=== PATIENT | male | born 1970 | race Caucasian/White ===

== ENCOUNTER 2024-01-25 23:07 | Inpatient (IN) | payer BC, SELFPAY ==
[2024-01-25 20:28] VITALS: BMI 31.0
[2024-01-25 20:35] VITALS: BP 184/111
[2024-01-25 20:54] LABS: % Basophils 0.8 % (0-2); % Eosinophils 6.3 % (0-6); % Immature Granulocytes 0.4 % (0-0.5); % Lymphocytes 39.5 % (20.5-51.1); % Monocytes 6.4 % (1.7-9.3); % Neutrophils 46.6 % (42.2-75.2); Absolute Basophils 0.1 10^3/uL (0-0.2); Absolute Eosinophils 0.5 10^3/uL (0-0.7); Absolute Lymphocytes 3.3 10^3/uL (1.2-3.4); Absolute Monocytes 0.5 10^3/uL (0.1-0.6); Absolute Neutrophils 3.9 10^3/uL (1.4-6.5); Hematocrit 41.8 % (39.0-52.0); Mean Corp Hgb Conc. 35.9 g/dL (33.0-37.0); Mean Corpuscular Hgb 31.3 pg (27.0-31.0); Mean Corpuscular Volume 87.1 fL (80.0-94.0); Mean Platelet Volume 9.1 fL (7.4-10.4); Nucleated Red Blood Cells % 0 % (-); Platelet Count 311 10^3/uL (130-400); Red Cell Dist. Width 11.6 % (11.5-14.5); White Blood Cell Count 8.4 10^3/uL (4.8-10.8)
[2024-01-25 21:14] LABS: ALT (SGPT) 29 U/L (0-50); AST (SGOT) 32 U/L (17-59); Albumin 4.6 g/dl (3.5-5.0); Alkaline Phosphatase 76 U/L (38-126); Blood Urea Nitrogen 22 mg/dl (9-20); Calcium 9.6 mg/dl (8.4-10.2); Carbon Dioxide 27 mmol/L (22-30); Chloride 97 mmol/L (98-107); Glucose 145 mg/dl (70-99); Sodium 134 mmol/L (135-145); Total Bilirubin 0.6 mg/dl (0.2-1.3); Total Protein 7.7 g/dl (6.3-8.2); eGFR > 60.00
[2024-01-25 22:12] LABS: Troponin I 0.118 ng/ml
--- NOTE | 2024-01-25 22:13 | ED.GENMED ---
History of Present Illness
<MARILEE Camarena - Last Filed: 01/26/24 05:13>
General
Chief Complaint: Chest Pain
Source: patient
Exam Limitations: none
Time Seen by Provider: 01/25/24 22:01
Travel History
Have you had any contact with someone who has COVID-19?: No
Do you have any symptoms of coronavirus? Fever > 100 degrees, chills, cough, shortness of breath, sore throat, loss of taste or smell, muscle aches, or headache?: No
History of Present Illness
History of Present Illness:
This is a 53 yo male pmh of HTN, GERD presenting for chest pain started 1pm today. One episode of chest pain for 20 minutes at 1pm which resolved, but then returned at 8pm and was worse on his way to the ER. States pain started at jaw consistent
with his dental abcess, but pain radiated down to his chest and both arms. States pain was sharp 8/10 in severity. He states he took 2 ibuprofen 30 mins before arriving to ER. He denies previous episodes of chest pain. In regards to dental abcess,
was treated with abx 3 months ago and is scheduled for a root canal next week. States pain is more severe than usual GERD pain. He denies fever, diaphoresis, SOB, dizziness, weakness, vision changes. Family history significant for OH in brother in
his 30s.
If applicable-neuro sx onset
Onset of symptoms known: Yes
Date of onset of symptoms: 01/25/24
Past History
<MARILEE Camarena - Last Filed: 01/26/24 05:13>
Past History
ED Past Medical History: HTN
ED Past Surgical History: Other (wisdom teeth removed)
Patient has exhibited threatening behavior?: No
Social History
Tobacco: Smoker
Alcohol: None
Drug: None
Personal:
Living: with family
Employment: Employed
Family History
Family History: CAD
Review of Systems
<MARILEE Camarena - Last Filed: 01/26/24 05:13>
Review of Systems
Allergies reviewed?: Yes
Phy Exam
<MARILEE Camarena - Last Filed: 01/26/24 05:13>
General Physical Exam
General Presentation: well appearing
General age: appears stated age
General Skin: warm
General Habitus: normal
General Mental: alert
General Hydration: appears well hydrated
Eye Exam
Eye Exam: PERRL
Cardiovascular Exam
Cardiovascular Exam: regular rate/rhythm and no murmur
Pulmonary Exam
Pulmonary Exam: lungs clear and chest non tender
Neurological Exam
Neurological Exam: alert and oriented x3
Skin Exam
Skin Exam: normal color
Scores
<MARILEE Camarena - Last Filed: 01/26/24 05:13>
Heart Score for Chest Pain Patients
STEMI patient?: No
History: Moderately Suspicious
ECG: Normal
Age: >45 - <65 years
Risk Factors: 1 or 2 Risk Factors
Troponin: >/= 3 x Normal Limit
Heart Score for Chest Pain Patients: 5
Heart Score Risk: 20.3% MACE over next 6 weeks
Course
<MARILEE Camarena - Last Filed: 01/26/24 05:13>
Orders/Labs/Results
Orders:
Orders
01/25/24 20:47
Complete Blood Count/With Diff Urgent
Comprehensive Metabolic Panel Urgent
01/25/24 21:40
Troponin I Urgent
01/25/24 22:12
Electrocardiogram (*1) Urgent
Reason for Study: Chest Pain
EKG- Treatment ONCE
01/25/24 22:22
Aspirin 325 mg PO NOW STA
Metoprolol [Lopressor] 25 mg PO NOW STA
01/25/24 22:[address] Non Medication Order As Directed
Physician Order: PTT 6 hours after initial start of Heparin infusion
Above order entered?: Yes
01/25/24 22:24
CR Chest - 2 Views Urgent
Comment:
Reason For Exam: cp
01/25/24 22:32
Heparin 4,000 units IV NOW STA
Nursing to Place Non Medication Order As Directed
Physician Order: PTT 6 hours after initial start of Heparin infusion
Above order entered?: Yes
01/25/24 22:44
PTT Urgent
Comment: Obtain baseline before beginning heparin infusion if not already collected
01/25/24 22:45
Heparin 95927 Units/250 ml 25,000 units in 250 ml IV PER PROTOCOL
Weight to be used for heparin protocol in kilograms (kg):: 98
Protocol:: Cardiac Tx/Acute Coronary
PTT Goal Range to be used:: PTT 73 to 111 seconds
Order type:: Initial
INITIAL Infusion Dose (UNITS/KG/hr) & then follow protocol:: 15 units/kg/hr
Infusion Dose in UNITS/hr & then follow protocol (UNITS/hr):: 1,450
INFUSION RATE in mL/hr & then follow protocol (mL/hr):: 14.5
PTT less than or equal to 64 seconds:: Increase rate by 200 units/hr (+ 2 mL/hr)
PTT 64.1 to 72.9 seconds:: Increase rate by 100 units/hr (+ 1 mL/hr)
PTT 73 to 111 seconds:: Target Range. No change in rate.
PTT 111.1 to 130.9 seconds:: Decrease rate by 100 units/hr (- 1 mL/hr)
PTT 131 to 199.9 seconds:: HOLD for 1 hr. Then decrease rate by 200 units/hr (- 2 mL/hr)
PTT greater than or equal to 200 seconds:: HOLD for 2 hrs & Notify Provider. Then decrease by 200 units/hr (-
2 mL/hr)
Lab follow-up:: Each change, PTT q6h until 2 consecutive are therapeutic. Then PTT
daily.
01/25/24 22:57
Admit/Transfer Patient As Directed
Co-Sign Provider:
Level of Care: Inpatient admission
Assign to:: Telemetry
Physician / Group: jonah
Diagnosis: nstemi
Reason for Telemetry: Chest Pain syndromes
Date to Stop Telemetry: 01/27/24
Time to Stop Telemetry: 11:00
Reason for Hospitalization: nstemi
Expected length of stay greater than two midnights?: Yes
ELOS- Estimated Length of Stay in days: 2
I certify the patient meets the requirements for IP care: Yes
01/25/24 22:58
Code Status As Directed
Resuscitation Status: Full Code
01/26/24 00:37
Echo 2D MMode Color/Doppler Routine
Reason for Study: nstemi
CARDIOLOGY CONSULT Routine
Consulting Provider: Ricardo Lopez
Was physician already notified: Yes
Heparin Protocol- PTT Orders As Directed
PTT per Heparin protocol: -Obtain CBC and baseline PTT - if not already collected.
-Obtain PTT 6 hours from start of infusion. Then, every 6 hours until 2 consecutive
PTT's are therapeutic. Then, PTT Daily.
-With each rate change, obtain PTT every 6 hours until 2 consecutive PTT's are
therapeutic. Then, PTT Daily.
Activity As Directed
Activity Level: As Tolerated
Notify MD As Directed
Notify physician if: PTT is greater than or equal to 200.
Pneumatic Compression Sleeves As Directed
Type: Knee high
Vital Signs As Directed
Frequency: Per unit guidelines
DX Deep Vein Thrombosis Video Routine
01/26/24 01:02
Troponin I Q6H
01/26/24 Breakfast
NPO
Allow oral meds: Yes
Allow clear liquids: Sips of Clears
Complete Blood Count/With Diff IN AM
Comprehensive Metabolic Panel IN AM
01/26/24 06:37
Troponin I Q6H
01/26/24 08:00
Amlodipine [Norvasc] 5 mg PO DAILY
Aspirin Low Dose EC [Aspir Low (Enteric Coated)] 81 mg PO DAILY
Lisinopril [Zestril] 20 mg PO DAILY
Metoprolol [Lopressor] 25 mg PO BID
Pantoprazole [Protonix] 40 mg PO BID
01/26/24 12:37
Troponin I Q6H
01/26/24 Dinner
Regular
01/27/24 06:00
Complete Blood Count/No Diff Q2D
Comment: notify provider: Platelet count < 130,000 or decrease by 50% from baseline
01/27/24 11:00
DC Protocol for Telemetry ONCE
01/29/24 06:00
Complete Blood Count/No Diff Q2D
Comment: notify provider: Platelet count < 130,000 or decrease by 50% from baseline
01/31/24 06:00
Complete Blood Count/No Diff Q2D
Comment: notify provider: Platelet count < 130,000 or decrease by 50% from baseline
02/02/24 06:00
Complete Blood Count/No Diff Q2D
Comment: notify provider: Platelet count < 130,000 or decrease by 50% from baseline
02/04/24 06:00
Complete Blood Count/No Diff Q2D
Comment: notify provider: Platelet count < 130,000 or decrease by 50% from baseline
02/06/24 06:00
Complete Blood Count/No Diff Q2D
Comment: notify provider: Platelet count < 130,000 or decrease by 50% from baseline
02/08/24 06:00
Complete Blood Count/No Diff Q2D
Comment: notify provider: Platelet count < 130,000 or decrease by 50% from baseline
02/10/24 06:00
Complete Blood Count/No Diff Q2D
Comment: notify provider: Platelet count < 130,000 or decrease by 50% from baseline
Abnormal Lab Results
01/25/24 01/25/24 01/25/24
20:47 21:40 22:44
MCH 31.3 H pg
(27.0-31.0)
Eosinophils % 6.3 H %
(0-6)
APTT 126.4 H Sec
(23.4-35.0)
Sodium 134 L mmol/L
(135-145)
Chloride 97 L mmol/L
(98-107)
BUN 22 H mg/dl
(9-20)
Glucose 145 H mg/dl
(70-99)
Troponin I 0.118 H* ng/ml
01/25/24 20:47
01/25/24 20:47
Vital Signs
Initial and Last Documented VS:
Initial Vital Signs
Temp Pulse Resp BP Pulse Ox
97.8 F 87 17 184/111 98
01/25/24 20:35 01/25/24 20:35 01/25/24 20:35 01/25/24 20:35 01/25/24 20:35
Last Documented Vital Signs
Temp Pulse Resp BP Pulse Ox
98.3 F 68 20 135/92 96
01/26/24 03:32 01/26/24 04:00 01/26/24 04:00 01/26/24 04:00 01/26/24 04:00
Natalylt;Rickey Marquez, DO - Last Filed: 01/25/24 22:44>
Orders/Labs/Results
Orders:
Orders
01/25/24 20:47
Complete Blood Count/With Diff Urgent
Comprehensive Metabolic Panel Urgent
01/25/24 21:40
Troponin I Urgent
01/25/24 22:12
Electrocardiogram (*1) Urgent
Reason for Study: Chest Pain
EKG- Treatment ONCE
01/25/24 22:22
Aspirin 325 mg PO NOW STA
Metoprolol [Lopressor] 25 mg PO NOW STA
01/25/24 22:[address] Non Medication Order As Directed
Physician Order: PTT 6 hours after initial start of Heparin infusion
Above order entered?: Yes
01/25/24 22:24
CR Chest - 2 Views Urgent
Comment:
Reason For Exam: cp
01/25/24 22:32
Heparin 4,000 units IV NOW STA
Nursing to Place Non Medication Order As Directed
Physician Order: PTT 6 hours after initial start of Heparin infusion
Above order entered?: Yes
01/25/24 22:44
PTT Urgent
Comment: Obtain baseline before beginning heparin infusion if not already collected
01/25/24 22:45
Heparin 56245 Units/250 ml 25,000 units in 250 ml IV PER PROTOCOL
Weight to be used for heparin protocol in kilograms (kg):: 98
Protocol:: Cardiac Tx/Acute Coronary
PTT Goal Range to be used:: PTT 73 to 111 seconds
Order type:: Initial
INITIAL Infusion Dose (UNITS/KG/hr) & then follow protocol:: 15 units/kg/hr
Infusion Dose in UNITS/hr & then follow protocol (UNITS/hr):: 1,450
INFUSION RATE in mL/hr & then follow protocol (mL/hr):: 14.5
PTT less than or equal to 64 seconds:: Increase rate by 200 units/hr (+ 2 mL/hr)
PTT 64.1 to 72.9 seconds:: Increase rate by 100 units/hr (+ 1 mL/hr)
PTT 73 to 111 seconds:: Target Range. No change in rate.
PTT 111.1 to 130.9 seconds:: Decrease rate by 100 units/hr (- 1 mL/hr)
PTT 131 to 199.9 seconds:: HOLD for 1 hr. Then decrease rate by 200 units/hr (- 2 mL/hr)
PTT greater than or equal to 200 seconds:: HOLD for 2 hrs & Notify Provider. Then decrease by 200 units/hr (-
2 mL/hr)
Lab follow-up:: Each change, PTT q6h until 2 consecutive are therapeutic. Then PTT
daily.
01/25/24 22:57
Admit/Transfer Patient As Directed
Co-Sign Provider:
Level of Care: Inpatient admission
Assign to:: Telemetry
Physician / Group: jonah
Diagnosis: nstemi
Reason for Telemetry: Chest Pain syndromes
Date to Stop Telemetry: 01/27/24
Time to Stop Telemetry: 11:00
Reason for Hospitalization: nstemi
Expected length of stay greater than two midnights?: Yes
ELOS- Estimated Length of Stay in days: 2
I certify the patient meets the requirements for IP care: Yes
01/25/24 22:58
Code Status As Directed
Resuscitation Status: Full Code
01/26/24 00:37
Echo 2D MMode Color/Doppler Routine
Reason for Study: nstemi
CARDIOLOGY CONSULT Routine
Consulting Provider: Ricardo Lopez
Was physician already notified: Yes
Heparin Protocol- PTT Orders As Directed
PTT per Heparin protocol: -Obtain CBC and baseline PTT - if not already collected.
-Obtain PTT 6 hours from start of infusion. Then, every 6 hours until 2 consecutive
PTT's are therapeutic. Then, PTT Daily.
-With each rate change, obtain PTT every 6 hours until 2 consecutive PTT's are
therapeutic. Then, PTT Daily.
Activity As Directed
Activity Level: As Tolerated
Notify MD As Directed
Notify physician if: PTT is greater than or equal to 200.
Pneumatic Compression Sleeves As Directed
Type: Knee high
Vital Signs As Directed
Frequency: Per unit guidelines
DX Deep Vein Thrombosis Video Routine
01/26/24 01:02
Troponin I Q6H
01/26/24 Breakfast
NPO
Allow oral meds: Yes
Allow clear liquids: Sips of Clears
Complete Blood Count/With Diff IN AM
Comprehensive Metabolic Panel IN AM
01/26/24 06:37
Troponin I Q6H
01/26/24 08:00
Amlodipine [Norvasc] 5 mg PO DAILY
Aspirin Low Dose EC [Aspir Low (Enteric Coated)] 81 mg PO DAILY
Lisinopril [Zestril] 20 mg PO DAILY
Metoprolol [Lopressor] 25 mg PO BID
Pantoprazole [Protonix] 40 mg PO BID
01/26/24 12:37
Troponin I Q6H
01/26/24 Dinner
Regular
01/27/24 06:00
Complete Blood Count/No Diff Q2D
Comment: notify provider: Platelet count < 130,000 or decrease by 50% from baseline
01/27/24 11:00
DC Protocol for Telemetry ONCE
01/29/24 06:00
Complete Blood Count/No Diff Q2D
Comment: notify provider: Platelet count < 130,000 or decrease by 50% from baseline
01/31/24 06:00
Complete Blood Count/No Diff Q2D
Comment: notify provider: Platelet count < 130,000 or decrease by 50% from baseline
02/02/24 06:00
Complete Blood Count/No Diff Q2D
Comment: notify provider: Platelet count < 130,000 or decrease by 50% from baseline
02/04/24 06:00
Complete Blood Count/No Diff Q2D
Comment: notify provider: Platelet count < 130,000 or decrease by 50% from baseline
02/06/24 06:00
Complete Blood Count/No Diff Q2D
Comment: notify provider: Platelet count < 130,000 or decrease by 50% from baseline
02/08/24 06:00
Complete Blood Count/No Diff Q2D
Comment: notify provider: Platelet count < 130,000 or decrease by 50% from baseline
02/10/24 06:00
Complete Blood Count/No Diff Q2D
Comment: notify provider: Platelet count < 130,000 or decrease by 50% from baseline
Abnormal Lab Results
01/25/24 01/25/24 01/25/24
20:47 21:40 22:44
MCH 31.3 H pg
(27.0-31.0)
Eosinophils % 6.3 H %
(0-6)
APTT 126.4 H Sec
(23.4-35.0)
Sodium 134 L mmol/L
(135-145)
Chloride 97 L mmol/L
(98-107)
BUN 22 H mg/dl
(9-20)
Glucose 145 H mg/dl
(70-99)
Troponin I 0.118 H* ng/ml
01/25/24 20:47
01/25/24 20:47
Vital Signs
Initial and Last Documented VS:
Initial Vital Signs
Temp Pulse Resp BP Pulse Ox
97.8 F 87 17 184/111 98
01/25/24 20:35 01/25/24 20:35 01/25/24 20:35 01/25/24 20:35 01/25/24 20:35
Last Documented Vital Signs
Temp Pulse Resp BP Pulse Ox
98.3 F 68 20 135/92 96
01/26/24 03:32 01/26/24 04:00 01/26/24 04:00 01/26/24 04:00 01/26/24 04:00
<MARILEE Camarena - Last Filed: 01/26/24 05:13>
MDM/Problems Addressed
Differential Diagnosis Includes:
Unstable angina, NSTEMI, costochondritis, GERD
MDM/Problems Addressed:
Unstable angina
- 2 episodes of Chest pain at rest, resolved after arrival to ER
NSTEMI
-chest pain radiating down BL arms
-No ST elevations on EKG
-troponin .118
Costochondritis
-no chest wall tenderness
GERD
-takes omeprazole daily
-states pain is distinct and more severe than typical GERD
<MARILEE Camarena - Last Filed: 01/26/24 05:13>
*Critical Care Note
Total Time (30-74mins, 75-104mins- exclusive of procedures): Not Applicable
<Rickey Marquez DO - Last Filed: 01/25/24 22:44>
*Critical Care Note
Total Time (30-74mins, 75-104mins- exclusive of procedures): Not Applicable
ED Attending Note
<MARILEE Camarena - Last Filed: 01/26/24 05:13>
-
Portions of this chart may have been created with voice recognition software.� Occasional wrong word or��sound alike� substitutions may have occurred due to the inherent limitations of voice recognition software.
<Rickey Marquez DO - Last Filed: 01/25/24 22:44>
ED Attending Note
Patient seen and examined by attending physician: Yes
I performed the substantive portion of visit, reviewed & personally made and approve the management plan that is documented in note by myself or CHARU.: Yes
ED Attending Note:
This a pleasant 53-year-old male that presents with chest pain. His chest pain initially began with jaw pain that radiated to his chest. Patient had a root canal on Yas[place]. Today that tooth caused him some pain. The pain radiated to his chest
and down his left arm. The pain was intermittent throughout the day beginning at 1 PM, but late this afternoon the pain came back. Patient took 600 mg of ibuprofen and came to the emergency department. Upon arrival, the pain resolved. Patient is
currently asymptomatic. Patient does have a history of hypertension. He denies any cardiac history though he has seen a air and water tester years ago at an outside hospital. He states that his brother had an OH in his 30s. Patient does smoke 2 to 3
cigars a week and drinks 2-3 alcoholic beverages per week at night. 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 Patient was seen in conjunction with the PA student. I have reviewed and agree with the history
and treatment plan presented. On my independent physical exam, patient is awake, alert, and oriented x3, no acute distress. Heart is regular rate rhythm. Lungs are clear to auscultation bilaterally with no wheezes rales or rhonchi. Skin is warm
and dry.
Vital signs are stable. Patient not hypoxic
Nursing note reviewed. I agree with nursing documentation up to this point in time.
Home Meds and allergies reviewed.
NUMBER AND COMPLEXITY OF PROBLEMS ADDRESSED AT THE ENCOUNTER
� Chronic conditions affecting care: Hypertension
� Acute Exacerbation and/or Progression of Chronic Illness: Acute problem
� Differential Diagnosis includes: ACS, musculoskeletal chest pain, referred pain from the jaw
AMOUNT AND/OR COMPLEXITY OF DATA TO BE REVIEWED AND ANALYZED
I performed an independent evaluation of the following and my interpretation is:
EKG: EKG shows normal sinus rhythm rate of 78 with normal intervals, normal axis. No evidence of acute ischemia. When compared with previous EKG, there is no obvious interval change noted.
CT:
X-rays:
Ultrasound:
Laboratory Studies: Troponin 0.118
Other:
Review of other/old records:
Clinical information was obtained by an independent historian:
Prescriptions/Medications Considered but not given:
Further testing considered but not performed:
RISK OF COMPLICATIONS AND/OR MORBIDITY OR MORTALITY OF PATIENT MANAGEMENT
Social determinants of health affecting care: Good Social Support
Discussion with other providers: Spoke with Dr. CAPRI Lopez, cardiology who agreed with plan to bring patient into the hospital service, give aspirin, heparin, metoprolol serial troponins.
Escalation of care including admission/observation vs risk of discharge considered: Admission to the hospital service
CRITICAL CARE NOTE: Not applicable
Total Time (exclusive of procedures):
Update:
Discharge Plan
Departure
Patient Disposition: Admit
Date of Disposition: 01/25/24
Time of Disposition: 22:43
Admit to: Telemetry
Presentation/result/management discussed w/ accepting MD/DO: Hospitalist
Discharge Problem:
Chest pain, ACS (acute coronary syndrome)
Interventions
Interventions:
*Risk Screen - Suicide Last Done: 01/26/24 03:52
*General Assessment Last Done: 01/25/24 20:35
*Neglect/Abuse Screening Last Done: 01/25/24 20:35
ED- Fall Risk Assessment Last Done: 01/25/24 22:45
*ED COVID-19 Vaccine History Last Done: 01/26/24 03:52
*Nursing Disposition Last Done: 01/26/24 03:05
ED- Cardiac Assessment Last Done: 01/25/24 22:45
Discharge Date and Time
Discharge Date/Time: 01/26/24 03:31
[2024-01-25] MEDS: ASPIRIN 325 MG PO (22:37)
[2024-01-25] MEDS: LOPRESSOR 25 MG PO (22:37)
[2024-01-25] MEDS: HEPARIN 4000 UNITS IV (22:38)
[2024-01-25 23:00] VITALS: BP 160/95
[2024-01-25 23:03] LABS: APTT 126.4 Sec (23.4-35.0)
--- NOTE | 2024-01-25 23:03 | HPS.HSE ---
Family Physician
-
Family Physician: James White
Chief Complaint
-
chest pain
History of Present Illness
53-year-old male past medical history of hypertension, GERD presenting for chest pain at 1 PM today. He had 1 episode of chest pain for 20 minutes which resolved and then returned at 8 PM and was worse. Pain started in the jaw and radiate down to
his chest and both arms. Pain was achy and 8 out of 10. He took 2 ibuprofen before coming to the emergency room. He denies ever having chest pain like this before. He denies any chest pain at the current time.
Patient has been having right lower jaw aching over the past few months. He saw dentist last week and was thought to have a dental abscess and is scheduled for root canal next week. He denies any fevers or chills or discharge from the mouth.
He denies any fever, sweating, shortness of breath, dizziness, nausea, weakness or vision changes.
Patient's brother had a heart attack in his 30s.
He does drink 3-4 drinks of alcohol per day. He smokes cigars occasionally. He does not use any other drugs.
Medical History
Past Medical History
Past Medical History: Reports Other (hypertension, GERD)
Past Surgical History: Reports None
Social History
Tobacco: Non-smoker
Alcohol: Daily
Drug: None
Family History
Family History: Not pertinent
Allergies / Home Medications
Allergies reflects when Allergies were last updated in [facility].
Home Medications with original date entered in [facility]
Allergy/Medication List:
Allergies
Allergy/AdvReac Type Severity Reaction Status Date / Time
No Known Allergies Allergy Verified 09/03/21 12:10
Home Medications
amlodipine 5 mg tablet 5 mg PO DAILY 07/10/15
omeprazole 20 mg capsule,delayed release 20 mg PO BID 01/25/24
ramipril 10 mg capsule 10 mg PO DAILY 01/25/24
Review of Systems
-
History Source: Patient
A 12 point ROS was completed and negative except as noted: Yes
Constitutional: Reports No Symptoms
EENT: Reports No Symptoms
Respiratory: Reports No Symptoms
Cardiac: Reports See HPI
Abdomen/GI: Reports No Symptoms
: Reports No Symptoms
Musculoskeletal: Reports No Symptoms
Skin: Reports No Symptoms
Neurological: Reports No Symptoms
Endocrine: Reports No Symptoms
Hematologic/Lymphatic: Reports No Symptoms
Psych: Reports No Symptoms
Physical Exam
Vital Signs
Vital Signs
Temp Pulse Resp BP Pulse Ox
97.8 F 82 17 152/97 98
01/25/24 20:35 01/25/24 22:37 01/25/24 20:35 01/25/24 22:37 01/25/24 20:35
Physical Exam
General: Well Developed, Well Nourished and No Apparent Distress
HEENT: NormoCephalic, Moist mucous membranes and Atraumatic
Respiratory: Clear
Cardiac: S1/S2 and Regular Rhythm; No Murmur or Rub
GI: Soft, Non Tender, Non Distended and Normal Bowel Sounds; No Organomegaly
Rectal: Deferred by Provider
Musculoskeletal: No Clubbing, No Cyanosis and No Edema
Skin: No Rash
Neuro: Nonfocal/grossly intact
Laboratory Results
-
01/25/24 20:47
01/25/24 20:47
Laboratory Results
Total Bilirubin 0.6 mg/dl (0.2-1.3) 01/25/24 20:47
AST 32 U/L (17-59) 01/25/24 20:47
ALT 29 U/L (0-50) 01/25/24 20:47
Alkaline Phosphatase 76 U/L (38-126) 01/25/24 20:47
Troponin I 0.118 ng/ml H* 01/25/24 21:40
Data Reviewed
-
Lab Data: Labs Reviewed by me
Old Records: Reviewed
Impression/Plan
-
IMPRESSION:
PLAN:
# NSTEMI
-EKG shows normal sinus rhythm
-Chest x-ray pending
-Troponin of 0.118
-Trend troponins
-Aspirin 325 mg given, continue
-Heparin drip
-Metoprolol given, continue BID
-N.p.o. past midnight
-Check echo
-Cardiology consulted
Possible dental abscess
-Scheduled for root canal next week
Essential hypertension
-Continue ramipril, amlodipine
GERD
-Continue omeprazole
Daily alcohol use
Full code
DVT prophylaxis�heparin drip
N.p.o. past midnight
[2024-01-26] VITALS (21 sets, daily range): BP systolic 108–155; BP diastolic 78–96; BMI 30.5
[2024-01-26] MEDS: HEPARIN 25000 UNITS/250 ML IV (00:09)
[2024-01-26 01:45] LABS: Troponin I 0.144 ng/ml
--- NOTE | 2024-01-26 03:39 | PTCARENOTE ---
Received pt from ED via [facility]. Able to ambulate to bed with minimal assistance. Pt has no complaints of pain at this time. Heparin gtt running currently at 1450 units/hr in right AC. VSS at this time. Pt NSR on monitor. NPO at this time.
Resting in bed with call gallegos in reach.
[2024-01-26 06:48] LABS: % Basophils 0.9 % (0-2); % Eosinophils 5.8 % (0-6); % Immature Granulocytes 0.3 % (0-0.5); % Lymphocytes 34.6 % (20.5-51.1); % Monocytes 7.2 % (1.7-9.3); % Neutrophils 51.2 % (42.2-75.2); APTT 60.3 Sec (23.4-35.0); Absolute Basophils 0.1 10^3/uL (0-0.2); Absolute Eosinophils 0.5 10^3/uL (0-0.7); Absolute Lymphocytes 2.7 10^3/uL (1.2-3.4); Absolute Monocytes 0.6 10^3/uL (0.1-0.6); Absolute Neutrophils 4.1 10^3/uL (1.4-6.5); Hematocrit 38.5 % (39.0-52.0); Hemoglobin 14.1 g/dL (13.0-18.0); Mean Corp Hgb Conc. 36.6 g/dL (33.0-37.0); Mean Corpuscular Hgb 31.1 pg (27.0-31.0); Mean Platelet Volume 9.4 fL (7.4-10.4); Nucleated Red Blood Cells % 0 % (-); Platelet Count 275 10^3/uL (130-400); Red Blood Cell Count 4.53 10^6/uL (4.70-6.10); Red Cell Dist. Width 11.6 % (11.5-14.5); White Blood Cell Count 7.9 10^3/uL (4.8-10.8)
[2024-01-26 06:54] LABS: ALT (SGPT) 23 U/L (0-50); AST (SGOT) 29 U/L (17-59); Alkaline Phosphatase 66 U/L (38-126); Blood Urea Nitrogen 19 mg/dl (9-20); Calcium 9.4 mg/dl (8.4-10.2); Carbon Dioxide 22 mmol/L (22-30); Chloride 104 mmol/L (98-107); Estimated Creatinine Clearance > 125 ml/min; Glucose 112 mg/dl (70-99); Potassium 4.1 mmol/L (3.5-5.1); Sodium 136 mmol/L (135-145); Total Bilirubin 0.9 mg/dl (0.2-1.3); Total Protein 6.9 g/dl (6.3-8.2); eGFR > 60.00
[2024-01-26 07:12] LABS: Troponin I 0.167 ng/ml
--- NOTE | 2024-01-26 08:42 | CON.CAR ---
Addendum entered and electronically signed by Wei Rios MD 01/26/24 09:25:
I saw and examined the patient.
The INFECTION PREVENTION PRACTITIONER's note was reviewed and I agree with the note.
53 year old male with history of GERD, prior history of root canal and tx of abcess 6months ago with addtional plans for extraction who presents with CP. Patietn with 2 episodesof exetional CP and jaw pain. yesterday. second episode loccurreed
walking up one flight of stairs and lated longer. ECG without ischemic changes. Troponin now 0.167. Presentation consistent with ACS/NSTMI. Pain free
- IV heparin
- ASA
- echo
- plan for cath.
Original Note:
Consultation
Consultation Request
Date/Time Consultation Requested: 01/26/24 1a
Date/Time Consultation Performed: 01/26/24 8:30a
Requesting Provider: Dr. Radford
Performing Provider: HUMZA Hall for Dr. Rios
Reason for Consultation: chest pain
Medical History
-
Chief Complaint: chest pain
History of Present Illness:
Mr. Borrego is a 53 yo male with HTN, GERD and seasonal allergies, who presents to the ER with c/o chest pain with exertion 01/25/24. He was walking uphill in [place] to his car and felt sudden chest tightness that lasted for 15 mins and resolved after he
rested in his car. Then last night he was walking up his stairs at home and again had chest pain that also radiated to his b/l arms and jaw. Pain lasted for hours, he tried Tums and Tylenol w/o relief so he came to the ER. EKG in the ER showed
NSR, no ischemia. Initial troponin 0.118 then 0.144, 0.167. He was given ASA, IV Heparin and is currently pain free. He had a tooth abscess 6 months ago treated with antibiotics and root canal. Last week at a routine dental cleaning, dentist
noted mild pain in tooth and abscess is still there and he recommends tooth extraction and bone graft scheduled for next week. Currently he c/o tooth pain and denies any cardiac symptoms.
Past Medical History
Past Medical History: GERD and HTN
Past Surgical History: None
Social History
Tobacco: Other (occasional cigar smoker)
Alcohol: Daily (2 drinks a night)
Drug: None
Personal:
Living: With Family
Employment: Employed
Family History
Family History: Early CAD (brother had UT age 30)
Allergies / Home Medications
Allergy/AdvReac Type Severity Reaction Status Date / Time
No Known Allergies Allergy Verified 09/03/21 12:10
�Medication �Instructions �Recorded �Confirmed �Type
amlodipine 5 mg tablet 5 mg PO DAILY Blood Pressure 07/10/15 01/25/24 History
omeprazole 20 mg capsule,delayed 20 mg PO BID GERD 01/25/24 01/25/24 History
release
ramipril 10 mg capsule 10 mg PO DAILY Blood Pressure 01/25/24 01/25/24 History
Review of Systems
-
History Source: Patient
All other systems: Negative unless noted
Physical Exam
Vital Signs
Temp Pulse Resp BP Pulse Ox
98.3 F 69 20 135/92 95
01/26/24 03:32 01/26/24 06:00 01/26/24 06:00 01/26/24 04:00 01/26/24 06:00
Lab Results
01/26/24 06:25
01/26/24 06:25
Troponin I 0.167 ng/ml H* 01/26/24 06:25
Physical Exam
General: Well Developed, Well Nourished and No Apparent Distress
HEENT: Normocephalic, Anicteric and Moist Mucous Membranes
Respiratory: Clear and Non Labored Respirations
Cardiac: S1/S2 and Regular Rhythm
Breast: Deferred by me
GI: Soft, Non Tender, Non Distended and Normal Bowel Sounds
Rectal: Deferred by Provider
Genito-urinary: No Costovertebral Tender
Musculoskeletal: No Clubbing, No Cyanosis and No Edema
Skin: Warm and Dry
Neuro: AO x 3
Psych: Calm
Impression / Plan
-
NSTEMI - acute chest pain with exertion yesterday.
- troponin 0.118, 0.144, 0.167, trend to peak.
- EKG w/o ischemia.
- currently pain free.
- ASA, IV Heparin, Lopressor.
- plan for [facility] today.
- check echo.
- NPO.
- check lipids. (lipid profile 06/2022: TC 171, TG 92, HDL 46, LDL 108) not currently on meds.
HTN - elevated on arrival.
- continue outpatient Lisinopril, Amlodipine.
- monitor on Lopressor.
GERD - stable on PPI, continue.
Data Reviewed
-
EKG: Tracing Personally Visualized and interpreted (NSR 78 bpm)
Labs: Labs Reviewed by me
Old Records: Reviewed (cariology office notes)
[2024-01-26] MEDS: ZESTRIL 20 MG PO (08:47)
[2024-01-26] MEDS: ASPIR LOW (ENTERIC COATED) 81 MG PO (08:47)
[2024-01-26] MEDS: PROTONIX 40 MG PO ×2 (08:47→20:04)
[2024-01-26] MEDS: LOPRESSOR 25 MG PO ×2 (08:47→20:06)
[2024-01-26] MEDS: NORVASC 5 MG PO (08:47)
--- NOTE | 2024-01-26 09:54 | W.PN.HOSP.TC ---
Today's Communication/Plan
-
for [facility] today
check lipid profile and a1c
maintain on heparin drip
Assessment / Plan
Assessment / Plan
Non-STEMI
-EKG shows normal sinus rhythm
-Troponin of 0.118 > 0.144 > 0.167
-Aspirin 325 mg given, continue on asa 81mg/d
-maintain on heparin drip.
-Cardiology following and help appreciated
-Planned for [facility] today
Possible dental abscess
-Scheduled for root canal/bone graft next week
Essential hypertension
-Continue ramipril, amlodipine
GERD
-Continue omeprazole
Daily alcohol use
-drinks 2-3 drinks/daily
-educated on alcohol cessation
Tobacco use
-smokes cigars occasionally
-counselled on cessation
-provide nicotine patch
Full code
DVT prophylaxis�heparin drip
Discussed with cardio
Anticipated Discharge: Within 24 hours
Subjective/Interval History
-
Date of Service: January 26, 2024
No further episode of chest pain/nausea/shortness of breath overnight
No other acute issues
Objective Data
-
Labs:
Laboratory Results
01/25/24 01/26/24 01/26/24
22:44 06:25 13:00
WBC 7.9
Hgb 14.1
Hct 38.5 L
Plt Count 275
APTT 126.4 H 60.3 H Pending
Sodium 136
Potassium 4.1
Chloride 104
Carbon Dioxide 22
BUN 19
Creatinine 0.7
Glucose 112 H
Calcium 9.4
Total Bilirubin 0.9
AST 29
ALT 23
Alkaline Phosphatase 66
Vital Signs:
Vital Signs
Temp Pulse Resp BP Pulse Ox
98.3 F 69 20 135/92 95
01/26/24 03:32 01/26/24 06:00 01/26/24 06:00 01/26/24 04:00 01/26/24 06:00
I&O
01/25/24 01/26/24 01/27/24
06:59 06:59 06:59
Output Total 300 / 300
Balance -300 / -300
Review of Systems
-
Respiratory: Reports No Symptoms
Cardiac: Reports No Symptoms
Abdomen/GI: Reports No Symptoms
Physical Exam
-
General: No Apparent Distress and Comfortable
HEENT: Negative Oxygen
Respiratory: Clear to Auscultation
Cardiac: Regular Rhythm and S1/S2; Negative Murmur or Rub
GI: Soft, Nontender, Nondistended and Normal Bowel Sounds
Musculoskeletal: No Edema
Neuro: Awake, Alert, Oriented, No Motor Deficits and Nonfocal/Grossly Intact
Psych: Calm
--- NOTE | 2024-01-26 11:46 | CM ---
Addendum entered by Ryann Miller RN 01/26/24 15:11:
CM Consult: Felder Check Brilinta (90mg BID)
Spoke with pharmacist, [address];
Brilinta is not on formulary with patient's insurance, cost is $542/month.
Information relayed to Myron Gonzalez & Guido, Bette Frye NP.
Original Note:
Patient with Dx Non-STEMI. Plan left heart cath today. Room air. Heparin gtt.
Met with patient and his SO Felicitas, who is called Soniya.
The patient resides with his SO in a 3 story townhouse.
He has been independent in ADLs and ambulation.
The patient is active, works & drives.
He has no DME except a BP machine, no prior VN.
PCP - James White
Pharmacy - [address]
No CM d/c needs identified.
Plan home.
--- NOTE | 2024-01-26 12:44 | PTCARENOTE ---
NPO status maintained today except am meds. Educated and poc d/w pt and s.o. Voided program manager transportation, report given. IV Heparin gtt placed on hold by research lab assistant staff and escorted via bed to research lab assistant.
--- NOTE | 2024-01-26 12:47 | ITS.CL.CATH ---
Reserve Operator - Catheterization
Cardiac Catheterization
Procedure Report:
CARDIAC CATHETERIZATION REPORT
Date of Procedure: 01/26/2024
Referring: Wei Rios MD
Indication: ACS/non-STEMI (troponin 0.17)
HEMODYNAMIC DATA
AO: 132/83
LV: 132/17
LEFT VENTRICULOGRAPHY: Normal left ventricular wall motion with EF 59%
CORONARY ANGIOGRAPHY
Dominance: Right
Left Main: Normal
LAD: 20% mid LAD stenosis with 60-70% ostial/proximal stenosis in the small D2 otherwise trivial luminal irregularities in the LAD system
Circumflex: The circumflex gives rise to a tiny OM1, a medium sized OM 2, and a medium sized OM 3 before terminating with a small OM 4. There is 90% stenosis in the mid circumflex just proximal to the takeoff of OM 3. This is a bifurcation lesion
which involves the origin of OM 3. There is 80% stenosis in the midportion of the very small OM 4.
RCA: Large dominant vessel with trivial luminal irregularities
Angioplasty: At the conclusion the diagnostic study, we proceeded with intervention of the circumflex disease. Heparin was used for anticoagulation. Brilinta 180 mg was chewed. A 6 Burmese EBU 3.75 guide was advanced to the left coronary ostium
but selected the LAD and we were not able to get a Hi-Torque floppy wire into the circumflex despite guide manipulation. This guide was replaced with a AL-1 which was too short to reach the left coronary artery. A JL 4 guide could not be advanced
into the left coronary and there was some innominate spasm that began to make it difficult to manipulate the catheter and the aortic root. Finally, an AL 2 guide left coronary artery. At this point we abandoned the and converted to the right
femoral artery which was accessed using a micropuncture technique on the first attempt. A 6 Burmese sheath was placed. The 6 Burmese AL 2 was advanced to the left coronary and the Hi-Torque floppy wire passed into the circumflex and across the mid
circumflex lesion into OM 3. We then took a BMW wire and were able to get this into the very small OM 4 which was to be jailed once we stented the circumflex lesion into OM 3. A 1.5 x 12 Medtronic balloon was advanced into the OM for vessel and
balloon angioplasty to 10 laura was accomplished to treat the high-grade disease in this very small OM 4. Of note the vessel size was certainly in the 1.5 mm range and I had no intention of placing a stent in this tiny vessel. We then stented the
90% mid circumflex lesion into OM 3 using a 2.25 x 12 Xience LÁZARO deployed at 12 laura then postdilated with a 2.5 NC trek to 17 laura. The final angiographic result was outstanding. There were no procedural complications.
Closure Device: 6 Burmese Angio-Seal RFA and R band for right radial artery
Radiation (mGy): 1062
DAP (cm2.Gy): 92.0
Fluoroscopy time: 21.7 minutes
CONCLUSIONS
1: ACS/non-STEMI presentation
2: Normal left ventricular wall motion with EF 59%
3. Successful stenting of 90% mid circumflex stenosis into OM 3 using 2.25 x 12 Xience LÁZARO
4. Successful angioplasty of small OM 4 using 1.5 mm balloon-this was done prior to jailing OM 4 by the mid circumflex stent extending into OM 3. The angiographic result was excellent
5. Recommend uninterrupted dual antiplatelet therapy for 12 months
6. Apparently the patient has an infected tooth which requires dental extraction. This is scheduled next week as an outpatient. The patient must continue dual antiplatelet therapy without interruption for this dental procedure
Copy to: Wei Rios MD, James White MD
Rudy Gonzalez MD, [facility], [facility]
[2024-01-26 13:24] LABS: ACT-LR - POC 268 Seconds (116-155)
[2024-01-26 13:28] LABS: APTT 90.1 Sec (23.4-35.0)
[2024-01-26 13:38] LABS: ACT-LR - POC 239 Seconds (116-155)
[2024-01-26 13:42] LABS: Troponin I 0.153 ng/ml
[2024-01-26 13:49] LABS: Glycohemoglobin (HgbA1c) 5.9 % (4.0-5.6)
[2024-01-26 14:15] LABS: Total Cholesterol 195 mg/dl (50-199); Triglyceride 79 mg/dl (10-149); Very Low Density Lipoprotein 15 mg/dl (0-30)
[2024-01-26 14:27] LABS: HDL Cholesterol 62 mg/dl; LDL Cholesterol, Calculated 118 mg/dl
[2024-01-26 14:28] LABS: ACT-LR - POC > 397 Seconds (116-155)
[2024-01-26] MEDS: SUBLIMAZE 50 MCG IV (14:39)
--- NOTE | 2024-01-26 16:05 | CM ---
Chart reviewed. Patient is independent of ADLS, lives in a [address], 2 [facility], 0 DME. Patient currently with no discharge needs. Plan is for the patient to return home. CM to follow
--- NOTE | 2024-01-26 16:28 | PTCARENOTE ---
Received pt from pit laborer team. AAO x 3 c/o / achiness in chest that is better than was prior while in the pit laborer. No sob noted. SR on monitor 60's. Pulse ox 96-97%. Rt radial band intact, pulse weak but palpable at RT radial , skin
blanchable. Rt groin dressing c,d,i. No bleeding or hematoma noted. DP pulses palpable. Bedrest reinforced. Will monitor.
[2024-01-26] MEDS: LIPITOR 40 MG PO (17:24)
[2024-01-26] MEDS: TYLENOL 650 MG PO (17:30)
--- NOTE | 2024-01-26 18:22 | PTCARENOTE ---
Rt radial R band weaned off per order parameters. dry 2x2 and tegaderm applied. No oozing appreciated. Rt groin dressing remains c,d,i. Assist x 1 oob and ambulated in hallway approx 75 feet with RN w/o issue. Sitting up in chair post.
[2024-01-26] MEDS: PERCOCET 5/325 1 TABLET PO (20:04)
--- NOTE | 2024-01-26 20:15 | PTCARENOTE ---
assumed care of pt from previous RN. pt A&Ox4, resting in bed at time of assessment. SR on tele-monitor, HR 80s. cath sites stable. PIV intact. c/o pain at groin cath site, see MAR. plan of care discussed, pt in agreement. see worklist for complete
nursing assessment, interventions, VS, and I&Os.
[2024-01-27 03:57] VITALS: BP 143/91
[2024-01-27 04:12] LABS: Hematocrit 38.6 % (39.0-52.0); Hemoglobin 13.9 g/dL (13.0-18.0); Mean Corpuscular Hgb 31.3 pg (27.0-31.0); Mean Corpuscular Volume 86.9 fL (80.0-94.0); Mean Platelet Volume 9.6 fL (7.4-10.4); Platelet Count 289 10^3/uL (130-400); Red Blood Cell Count 4.44 10^6/uL (4.70-6.10); Red Cell Dist. Width 11.8 % (11.5-14.5); White Blood Cell Count 9.1 10^3/uL (4.8-10.8)
[2024-01-27] MEDS: PERCOCET 5/325 1 TABLET PO (04:41)
[2024-01-27 04:44] LABS: Blood Urea Nitrogen 19 mg/dl (9-20); Calcium 9.3 mg/dl (8.4-10.2); Carbon Dioxide 22 mmol/L (22-30); Chloride 105 mmol/L (98-107); Estimated Creatinine Clearance > 125 ml/min; Glucose 107 mg/dl (70-99); Potassium 4.4 mmol/L (3.5-5.1); Sodium 134 mmol/L (135-145); eGFR > 60.00
[2024-01-27 07:15] VITALS: BP 129/80
[2024-01-27 07:39] VITALS: BP 138/85
[2024-01-27] MEDS: ZESTRIL 20 MG PO (07:39)
[2024-01-27] MEDS: PROTONIX 40 MG PO (07:45)
[2024-01-27] MEDS: NORVASC 5 MG PO (07:45)
[2024-01-27] MEDS: LOPRESSOR 25 MG PO (07:45)
[2024-01-27] MEDS: ASPIR LOW (ENTERIC COATED) 81 MG PO (07:45)
[2024-01-27] MEDS: PLAVIX 600 MG PO (07:54)
--- NOTE | 2024-01-27 08:30 | PTCARENOTE ---
Patient received this am from caustic cresylate shift superintendent RN. Patient resting in bed reports discomfort at femoral site, dressing CDI. Physician ordered US of femoral due to pain. VS within patients overall parameters. No reports of CP/PALP, pt overall states this
is the best he's ever felt in a while. Patient given AM meds and ordered morning breakfast.
--- NOTE | 2024-01-27 08:36 | W.PN.CD ---
Today's Communication / Plan
-
Importance of dual antiplatelet therapy discussed with the patient.
Continue with aspirin and Plavix.
Also continue with beta-adonis and statin
Continue antihypertensive meds including amlodipine and lisinopril.
Right femoral ultrasound this morning. If ultrasound is unremarkable then plan will be for discharge later today.
Impression / Plan
-
NSTEMI - acute chest pain with exertion yesterday.
- troponin 0.167, k.
-Ventricular function
-Patient underwent cardiac catheterization with successful stenting of 90% mid circumflex stenosis. PTCA of OM 4. In addition there was moderate 60 to 70% LAD stenosis
-DAPT.
-Right groin with mild fullness. Mild discomfort on palpation but within normal limits.. Plan for femoral ultrasound.
HTN -stable. Monitor.
- continue outpatient Lisinopril, Amlodipine.
- monitor on Lopressor.
GERD - stable on PPI, continue.
Physical Exam
Vital Signs/Labs
Vital Signs
Temp Pulse Resp BP Pulse Ox
98.4 F 67 18 138/85 98
01/27/24 07:00 01/27/24 07:45 01/27/24 07:00 01/27/24 07:45 01/27/24 07:00
01/26/24 01/27/24 01/28/24
06:59 06:59 06:59
Actual Weight 93.5 kg
01/27/24 03:53
01/27/24 03:53
APTT 90.1 Sec (23.4-35.0) H 01/26/24 12:55
Triglycerides 79 mg/dl (10-149) 01/26/24 12:55
LDL Cholesterol, Calc 118 mg/dl 01/26/24 12:55
VLDL Cholesterol, Calc 15 mg/dl (0-30) 01/26/24 12:55
HDL Cholesterol 62 mg/dl 01/26/24 12:55
LAB Results
01/25/24 01/26/24 01/26/24
21:40 01:02 06:25
Troponin I 0.118 H* 0.144 H* 0.167 H*
01/26/24
12:55
Troponin I 0.153 H*
Physical Exam
Constitutional: No acute distress
Cardiovascular: Rhythm & rate is regular
Respiratory: Respiratory effort normal
GI: Soft
Neuro/Psych: Alert
Other: Cath Site and Other ( )
mild fullness
Data Reviewed
-
Date of Service: January 27, 2024
Medical Decision Making: Reviewed Test Results
EKG: Report Reviewed by me
Echo: Report Reviewed by me
Labs: Labs Ordered by me
--- NOTE | 2024-01-27 08:46 | W.PN.HOSP.TC ---
Today's Communication/Plan
-
d/c home if groin US normal
Assessment / Plan
Assessment / Plan
LHC
2: Normal left ventricular wall motion with EF 59%
3. Successful stenting of 90% mid circumflex stenosis into OM 3 using 2.25 x 12 Xience LÁZARO
4. Successful angioplasty of small OM 4 using 1.5 mm balloon-this was done prior to jailing OM 4 by the mid circumflex stent extending into OM 3. The angiographic result was excellent
Non-STEMI
-EKG shows normal sinus rhythm
-Troponin of 0.118 > 0.144 > 0.167
-Aspirin 325 mg given, continue on asa 81mg/d
-Cardiology following and help appreciated
-s/p LHC yesterday, report as above
-maintain on asa/plavix for 12 months, Brilinta was cost prohibitive
-Getting Right femoral US to r/o aneurysm or other issue - if normal - can go home
Possible dental abscess
-Scheduled for root canal/bone graft next week
-Patient will need to continue dual anti-platelet
Essential hypertension
-Continue ramipril, amlodipine
GERD
-Continue omeprazole
Daily alcohol use
-drinks 2-3 drinks/daily
-educated on alcohol cessation
Tobacco use
-smokes cigars occasionally
-counselled on cessation
-provide nicotine patch
Full code
DVT prophylaxis� heparin subq
Anticipated Discharge: Today
Subjective/Interval History
-
Date of Service: January 27, 2024
some right groin access site pain
no other issues reported
Objective Data
-
Labs:
Laboratory Results
01/27/24
03:53
WBC 9.1
Hgb 13.9
Hct 38.6 L
Plt Count 289
Sodium 134 L
Potassium 4.4
Chloride 105
Carbon Dioxide 22
BUN 19
Creatinine 0.6 L
Glucose 107 H
Calcium 9.3
Vital Signs:
Vital Signs
Temp Pulse Resp BP Pulse Ox
98.4 F 67 18 138/85 98
01/27/24 07:00 01/27/24 07:45 01/27/24 07:00 01/27/24 07:45 01/27/24 07:00
I&O
01/26/24 01/27/24 01/28/24
06:59 06:59 06:59
Intake Total 1340 / 1340
Output Total 300 / 300
Balance -300 / -300 1340 / 1340
Review of Systems
-
Respiratory: Reports No Symptoms
Cardiac: Reports No Symptoms
Abdomen/GI: Reports No Symptoms
Physical Exam
-
General: No Apparent Distress and Comfortable
HEENT: Negative Oxygen
Respiratory: Clear to Auscultation
Cardiac: Regular Rhythm and S1/S2; Negative Murmur or Rub
GI: Soft, Nontender, Nondistended and Normal Bowel Sounds
Genito-urinary: Other (Right groin cath access site tenderness, no swelling/ecchymosis)
Musculoskeletal: No Edema
Neuro: Awake, Alert, Oriented, No Motor Deficits and Nonfocal/Grossly Intact
Psych: Calm
--- NOTE | 2024-01-27 08:49 | W.DCSUMMARY ---
Discharge Summary
Discharge Data
Date of Admission: 01/25/24
Date of Discharge: 01/27/24
-
Pending Results: No
Hospital Course
Discharging Physician : Dr Saran Lora
Disposition : Home
Primary care physician : Dr James White
Principal Discharge diagnosis :
Non-ST segment elevation myocardial infarction
Chronic Discharge diagnosis :
Dental caries
Gastroesophageal reflux disease
Essential hypertension
Daily alcohol use
Tobacco use
Hospital Course :
Patient is a 53-year-old male with above-mentioned past medical history came to ER for having new onset of sternal pain with radiation to jaw and both arms. This this has been happening episodically for last few months. Cardiology was consulted
for further evaluation. Initial troponin was negative although follow-up troponin showing minimal elevation. Cardiology recommended for patient to undergo left heart catheterization which showed mid circumflex stenosis and OM 4 branch stenosis
both were stented. Postprocedure patient was started on dual antiplatelet therapy. Patient to be maintained on this for 12 months. Of note patient have a dental procedure planned and was informed not to discontinue antiplatelets. Patient also
have right groin pain post heart catheterization although groin ultrasound rule out any femoral pseudoaneurysm. Patient was discharged home at this point with follow-up with cardiology and primary care physician in office.
Important imaging findings :
None
Procedure findings :
LHC
1. Normal left ventricular wall motion with EF 59%
2. Successful stenting of 90% mid circumflex stenosis into OM 3 using 2.25 x 12 Xience LÁZARO
3. Successful angioplasty of small OM 4 using 1.5 mm balloon-this was done prior to jailing OM 4 by the mid circumflex stent extending into OM 3. The angiographic result was excellent
Discharge Plan
-
Patient Disposition: Home (Routine Discharge)
Discharge Diagnosis/Procedures: Angioplasty and stent to Left Circumflex artery
Condition: Fair
Diet: Low Cholesterol and 2 Gram Sodium
Activity: As tolerated
Driving Restrictions: No driving for 24 hours
Bathing Restrictions: OK to Shower
Other Services: Cardiac Rehab
Stand Alone Forms: DC Instructions- Cath/EP Lab
Referrals:
[facility] [Outside] - 02/28/24 7:30 am
(Cardiac Rehab Orientation appointment is on 02/28/2024 7:30 AM.
The Cardiac Rehab gym is located on the first floor of the [facility].)
Ann Vuong CRNP [Specified Professional Personl] - 02/09/24 11:20 am (Cardiology followup appointment)
James White MD [Family Provider] - in one to two months
Prescriptions:
New
atorvastatin 40 mg Tablet
40 mg PO QPM Qty: 30 2RF
acetaminophen 325 mg Tablet
650 mg PO Q4HPRN PRN (Reason: mild pain) Qty: 60 0RF
clopidogrel 75 mg Tablet
75 mg PO DAILY Qty: 30 2RF
aspirin 81 mg Tablet,Delayed Release (Dr/Ec)
81 mg PO DAILY Qty: 30 0RF
metoprolol tartrate 25 mg Tablet
25 mg PO BID Qty: 60 2RF
tramadol 50 mg tablet
25 mg PO DAILY Qty: 3 0RF
Continued
amlodipine 5 mg Tablet
5 mg PO DAILY
omeprazole 20 mg Capsule,Delayed Release(Dr/Ec)
20 mg PO BID
ramipril 10 mg capsule
10 mg PO DAILY
Discharge Orders:
Discharge Patient (As Directed); Ordered 01/27/24
Ordered By: Saran Lora
Care Plan Goals
Care Plan Goals:
Problem: Readiness for enhanced knowledge related to diagnosis and treatment plan
Goal: Understand your diagnosis and treatment plan needs, including medications if applicable.
Instructions: Know your diagnosis, underlying causes and treatment plan options, including medications if applicable. Consult with your health care team to learn about your diagnosis and treatment plan, including medications if applicable.
Discharge Date and Time
Discharge Date/Time: 01/27/24 14:10
Print Language: IRANIAN
[2024-01-27 11:37] VITALS: BP 131/82
[2024-01-27] MEDS: TYLENOL 650 MG PO (12:38)
== END 2024-01-27 14:10 | disposition home or self-care (01) | DRG 322 ==
LOC: IVU 23:07
PROVIDERS: Emergency Medicine; Internal Medicine Cardiovascular Disease; Nurse Practitioner; ADMITTING PHYSICIAN Hospitalist; ATTENDING PHYSICIAN Hospitalist; CONSULT PHYSICIAN Internal Medicine Cardiovascular Disease; EMERGENCY PHYSICIAN Student in an Organized Health Care Education/Training Program; FAMILY PHYSICIAN Internal Medicine
PROC: 027034Z Dilation of Coronary Artery, One Artery with Drug-eluting Intraluminal Device, Percutaneous Approach (ICD-10-PCS; 2024-01-26)
PROC: B2151ZZ Fluoroscopy of Left Heart using Low Osmolar Contrast (ICD-10-PCS; 2024-01-26)
PROC: 4A023N7 Measurement of Cardiac Sampling and Pressure, Left Heart, Percutaneous Approach (ICD-10-PCS; 2024-01-26)
PROC: B2111ZZ Fluoroscopy of Multiple Coronary Arteries using Low Osmolar Contrast (ICD-10-PCS; 2024-01-26)
DX: I21.4 Non-ST elevation (NSTEMI) myocardial infarction (principal); I25.10 Atherosclerotic heart disease of native coronary artery without angina pectoris; F17.290 Nicotine dependence, other tobacco product, uncomplicated; I10 Essential (primary) hypertension; K21.9 Gastro-esophageal reflux disease without esophagitis; K04.7 Periapical abscess without sinus; Z82.49 Family history of ischemic heart disease and other diseases of the circulatory system
CPT/HCPCS: 71046; 80048; 80053; 80061; 83036; 84484; 85025; 85027; 85347; 85730; 92921; 93005; 93306; 93458; 93926; 96365; 96366; 99285; 99406; C1725; C1760; C1769; C1874; C1887; C1894; C9600; Q9967